=== PATIENT | female | born 1930 | race Caucasian/White ===

== ENCOUNTER 2018-03-22 13:20 | Outpatient (CLI) | payer MEDICARE, OTHER ==
--- NOTE | 2018-03-22 16:17 | RAD ---
LUMBAR SPINE FOUR VIEWS: HISTORY: Spondylolisthesis. COMPARISON: 10/25/2014 FINDINGS: Limited evaluation due to technique. There is poor penetration. On the AP projection, there are at least 5 lumbar type vertebral bodies. A dorsal column stimulator is noted. There is rightward curva ture of the upper lumbar spine and leftward curvature of the lower lumbar spine. In the neutral posi tion, 7.2 mm of anterolisthesis of L5 upon S1. Upon flexion, 5.5 mm of anterolisthesis of L5 upon S1 . Upon extension, 6.4 mm of anterolisthesis of L5 upon S1. In the neutral position, 2.6 mm of anter olisthesis of L4 upon L5. Upon flexion, 3.7 mm of anterolisthesis of L4 upon L5. Upon extension, 5. 3 mm of anterolisthesis of L4 upon L5. Vacuum disk phenomenon at L4-L5 is suggested. There are degenerative changes of the posterior elements with posterior element hypertrophy. IMPRESSION: Spondylolisthesis, as above. POS: C
--- NOTE | 2018-03-22 16:41 | CT ---
CT LUMBAR SPINE NONCONTRAST: 03/22/2018 HISTORY: An 87-year-old female with: M43.16, spondylolisthesis, lumbar region. FINDINGS: For the purposes of this report, the level with hypoplastic bilateral ribs will be designated as T12. Inferior to this, there are five lumbar-type vertebrae. Vertebral body heights are maintained. Th ere is dextroscoliosis with apex of curvature at T12. There is compensatory levoscoliosis with apex of curvature at L4-L5. There are asymmetrically severe degenerative disk changes on the concave side s of the curvature, which is on the left at T11-T12 and at T12-L1, and on the right side at L3-L4 and L4-L5, and then on the left at L5-S1. The findings regarding the neural foramina and the spinal canal are as follows: T11-T12: Mild left neural foraminal stenosis. No right neural foraminal stenosis. No central steno sis. Dorsal column stimulator leads enter the posterior aspect of the spinal canal at this level and then ascend. T12-L1: Generous caliber spinal canal and thecal sac. Minimal disk bulge. Mild to moderate left ne ural foraminal stenosis. Moderate left degenerative facet changes. No right neural foraminal stenos is. L1-L2: Minimal disk bulge. Mild ligamentum flavum thickening. Mild bilateral degenerative facet ch anges. No significant central stenosis. No right neural foraminal stenosis. Mild left neural renu inal stenosis. L2-L3: Mild to moderate ligamentum flavum thickening. Moderate to severe right degenerative facet c hanges. Normal left facet joint. Mild ligamentum flavum thickening. Mild bilateral neural foramina l stenosis. Minimal or mild central stenosis. L3-L4: Asymmetrically severe right-sided degenerative facet disease. Mild left degenerative facet d isease. Mild to moderate ligamentum flavum thickening. Mild disk bulge. Moderate right neural fora ramakrishna stenosis. Mild left neural foraminal stenosis. Mild central spinal canal stenosis. L4-L5: Severe right degenerative facet disease and mild to moderate left degenerative facet disease results in grade 1 anterolisthesis of L4 on L5. Moderate right neural foraminal stenosis with decrea se in craniocaudal dimension of the foramen but increase in the anteroposterior dimensions of the for amen, due to the spondylolisthesis. Deformation of the exiting right L4 nerve root (moderate right n eural foraminal stenosis overall). Mild to moderate left neural foraminal stenosis. Right paracentr al component of the asymmetrically right-sided disk bulge may be impinging on the right L5 nerve root at the lateral recess. Overall moderate central spinal canal stenosis. L5-S1: Severe left degenerative facet changes. Mild to moderate right degenerative facet changes. Generous caliber of spinal canal and thecal sac. Mild to moderate right neural foraminal stenosis. Moderate left neural foraminal stenosis. Mild grade 1 anterolisthesis of L5 on S1. There is a 3.5 cm fusiform aneurysmal dilation of the distal abdominal aorta. This has increased in size from a previous diameter of 3.1 cm on the abdominal CT of 02/21/2014. IMPRESSION: 1. Lumbar spondylosis with multilevel asymmetrical high-grade degenerative disk disease and multilev el asymmetrical high-grade facet osteoarthrosis. The asymmetry of the degenerative disease is due to S-shaped scoliosis. 2. Multilevel neural foraminal stenosis, including moderate. 3. Grade 1 spondylolistheses at L4-L5 and L5-S1 due to facet osteoarthrosis. 4. Moderate central stenosis and lateral recess stenosis at L4-L5. 5. Interval growth of fusiform infrarenal abdominal aortic aneurysm, now 3.5 cm. POS: TPC
== END 2018-03-22 13:21 | disposition home or self-care (01) ==
LOC: RAD 13:20
PROVIDERS: ATTEND Specialist
DX: M43.16 Spondylolisthesis, lumbar region (principal); M47.816 Spondylosis without myelopathy or radiculopathy, lumbar region; M51.36 Other intervertebral disc degeneration, lumbar region; M41.9 Scoliosis, unspecified; M48.061 Spinal stenosis, lumbar region without neurogenic claudication; M43.17 Spondylolisthesis, lumbosacral region; I71.4 Abdominal aortic aneurysm, without rupture
CPT/HCPCS: 72120; 72131

== ENCOUNTER 2018-05-02 20:53 | Inpatient (IN) | payer MEDICARE, OTHER ==
[2018-05-02 21:15] LABS: #Eosinphils 0.2 thou/uL (0.0-0.7); #Lymphocytes 1.9 thou/uL (1.20-3.40); #Monocytes 0.6 thou/uL (0.11-0.59); #Neutrophils 4.8 thou/uL (1.40-6.50); %Basophils 0.1 % (0.0-1.0); %Eosinophils 2.4 % (0.0-10.0); %Lymphocytes 25.9 % (21.0-51.0); %Monocytes 7.7 % (0.0-10.0); %Neutrophils 63.8 % (42.0-75.0); Hemoglobin 12.2 g/dL (12.0-16.0); Mean Corpuscular HGB CONC 31.8 g/dL (32.0-36.0); Mean Corpuscular Hemoglobin 29.4 pg (27.0-31.0); Mean Corpuscular Volume 92.5 fL (78.0-98.0); Mean Platelet Volume 7.7 fL (7.4-10.4); Platelet Count 195 thou/uL (130-400); RBC Distribution Width 12.6 % (11.5-14.5); Red Blood Cell (RBC) Count 4.15 mill/uL (4.20-5.40); White Blood Cell (WBC) Count 7.5 thou/uL (4.8-10.8)
[2018-05-02] MEDS ORDERED: Aspirin 325 MG TAB ONE (21:26)
[2018-05-02 21:28] LABS: INR-International Normal Ratio 1.2; PTT 31.5 SEC (22.9-36.1); Prothrombin Time 15.3 SEC (12.0-14.7)
[2018-05-02 21:34] LABS: ALT (SGPT) 8 U/L (8-55); AST (SGOT) 8 U/L (5-34); Albumin 3.6 g/dL (3.4-4.8); Alkaline Phosphatase 94 U/L (40-150); Anion Gap 9 mmol/L (10-20); BUN (Urea Nitrogen) 21 mg/dL (9.8-20.1); Bilirubin, Total 0.3 mg/dL (0.2-1.2); CK (CPK) 47 U/L (29-168); Calc. Creatinine Clearance 0 mL/min (70-130); Carbon Dioxide 28 mmol/L (23-31); Chloride 105 mmol/L (98-107); Estimated GFR-MDRD 46; Globulin 2.6 g/dL (2.4-3.5); Glucose 86 mg/dL (83-110); Lipase 35 U/L (8-78); Potassium 4.3 mmol/L (3.5-5.1); Protein, Total 6.2 g/dL (6.0-8.3); Sodium 138 mmol/L (136-145)
--- NOTE | 2018-05-02 22:43 | RAD ---
PORTABLE CHEST: History: Syncope. FINDINGS: Heart size within normal limits. There are atherosclerotic changes of the aorta. Lungs show chronic c hange. Dorsal column stimulator is present. IMPRESSION: Chronic lung change. POS: DONG
[2018-05-02] MEDS ORDERED: oxyCODONE/Acetaminophen 5 mg/325 mg Tablet PO SCH (23:45)
[2018-05-03 01:06] VITALS: BMI 37.4
[2018-05-03] MEDS ORDERED: Ondansetron ODT 4 MG TAB SL PRN (05:27)
[2018-05-03] MEDS ORDERED: Ondansetron PF 4 MG/2 ML Vial IVP PRN (05:27)
[2018-05-03] MEDS ORDERED: oxyCODONE/Acetaminophen 5 mg/325 mg Tablet PO SCH (06:30)
[2018-05-03] MEDS ORDERED: Non-Formulary Item 1 EACH (Esomeprazole Magnesium [Nexium] 40 MG) PO SCH (09:00)
[2018-05-03] MEDS ORDERED: Aspirin 325 MG TAB PO SCH (09:00)
[2018-05-03] MEDS: FLUoxetine HCl 20 MG CAP PO SCH ×2 (09:09→21:29)
[2018-05-03] MEDS: Apixaban 5 MG TAB PO SCH ×2 (09:09→21:29)
--- NOTE | 2018-05-03 10:23 | HP ---
CHIEF COMPLAINT: Right hand weakness. HISTORY OF PRESENT ILLNESS: This patient is an 87-year-old female with history of extensive tobacco abuse and a relatively recent diagnosis of atrial fibrillation. The patient reports that she went to grocery store yesterday and was having a difficult time opening the car door because her right hand was not cooperating. She subsequently got to the grocery store and when she was trying to function there, her right hand was not working and felt like it was significantly heavy. She states that when she knew that she had a problem, she denied any lower extremity symptoms, facial droop, speech or swallowing difficulties. She did report a little bit of pain in the left frontal and alevism area, which was mild. She denied any fevers or chills or any other indications of feeling ill at all. The patient presented to the Emergency Department in [place], where CT scan of the head was notable for probable nonocclusive calcified embolus within the left MCA circulation. The patient was subsequently transferred to this facility. She reports that her hand is improving, although it is not back to normal functioning at this time. REVIEW OF SYSTEMS: The patient has some persistent lower extremity edema, in which she has chronic pain in her feet and legs. Otherwise, all systems were reviewed and all pertinent positives and negatives noted in the history of present illness. PAST MEDICAL HISTORY: Notable for atrial fibrillation, which she reports was only diagnosed a few months ago. She has sacroiliitis and degenerative spine disease, COPD for which she does not require medications, although she does have an inhaler. She states she rarely uses it. She has macular degeneration, urinary incontinence, irritable bowel syndrome, significant reflux, and chronic pain. PAST SURGICAL HISTORY: Multiple knee surgeries culminating in her total right knee arthroplasty, cataract-ectomy, hysterectomy, thyroidectomy, cervical laminectomy, other lumbar surgeries, and she also reports that at one point she had "twisted intestines" requiring surgical intervention. FAMILY HISTORY: Father at 36. She is not aware of any significant issues related to him. Her mother lived well into her 80s. She has brothers, who have heart disease and alcoholism. SOCIAL HISTORY: The patient smoked 2 packs a day for 70 years and 5 years ago converted over to an E-cigarette. She denies alcohol or drugs. She is a . She is full code and her daughter in-law, Anny Baker, would be her surrogate decision maker. ALLERGIES: MORPHINE. THE PATIENT ALSO REPORTS THAT ASPIRIN CAUSES HER SIGNIFICANT GI DISTRESS. HOME MEDICATIONS: 1. Percocet p.r.n. 2. Fluoxetine 40 mg b.i.d. 3. ICAPS AREDS Softgel one p.o. daily. 4. Metoprolol 12.5 mg p.o. daily. 5. Eliquis 5 mg b.i.d. 6. Nexium 40 mg b.i.d. PHYSICAL EXAMINATION: VITAL SIGNS: Temperature 97.7, pulse 60, respirations 16, O2 sat 93% on room air, and blood pressure is 121/62. GENERAL APPEARANCE: Age-appropriate female. She is in no distress. Awake, alert, oriented, pleasant, cooperative. HEENT: PERRL. No OP lesions. Dentures are in place and the upper denture palate is stained basically black. NECK: Supple and symmetric without significant bruits noted. No JVD. HEART: Regular without murmurs. LUNGS: Diminished with some scattered rales throughout, but fair air exchange. ABDOMEN: Soft, nontender, and nondistended. Positive bowel sounds. No masses. No organomegaly. EXTREMITIES: Have 2+ pitting edema up to the level of the knee. There are some varicose veins present superficially. NEUROLOGICAL: Cranial nerves appear to be generally intact. She does have very subtle weakness in the counseling aide of the right hand. In the right upper extremity in general has 4/5 strength. She appears to have 5/5 strength in the lower extremity in generally normal sensation throughout. The patient appears to have normal speech and cognition. PSYCH: The patient's affect and behavior are normal. LABORATORY DATA: From this facility, white count 7.5, hemoglobin 12.2, and platelets 195. PT 15.3, INR 1.2. Sodium 138, potassium 4.3, chloride 105, CO2 is 28, BUN 21, creatinine is 1.13, glucose 86, calcium 9.0, AST is 8, ALT is 8. Ammonia is 23. Troponin 0.03. BNP 228. Albumin 3.6. TSH 3.6. Prolactin 16.1. IMAGING DATA: Chest x-ray shows chronic lung changes. IMPRESSION AND PLAN: 1. Apparent acute cerebrovascular accident with right upper extremity weakness. The patient has evidence of calcified embolus in the left middle cerebral artery distribution, which would most likely be the culprit lesion. Her CT angio from [place] also revealed atherosclerotic plaque producing approximately 50% narrowing in the proximal aspect of the right internal carotid artery, which extends into the medial aspect of the cavernous segment of the right internal carotid artery. The right middle cerebral artery showed no abnormalities, though left common carotid showed no high-grade stenosis or occlusion. Proximal aspect of the left internal carotid artery demonstrated both calcified and noncalcified atherosclerotic plaque most suspicious for short-segment high-grade stenosis. The remainder of the left internal carotid artery showed no evidence of high-grade stenosis or occlusion and the calcification in the middle cerebral artery is suspicious for a calcified embolus was also present. We will get an MRI of the brain today. Consult Neurology. Consult Stroke Team. Get carotid Dopplers. The patient will not be started on aspirin because of her GI distress related to use of that. We did discuss Plavix. However, the patient is already on Eliquis and there was some concern about having the double anticoagulation coverage. We will therefore wait for Neurology assessment. The patient did receive initial dose of aspirin at [place], which so far she has tolerated well. We will check a fasting lipid panel in the morning and consult the full Stroke Team. 2. Possible carotid stenosis. We will follow up with the carotid Doppler and check velocities. May need CV Surgery input. 3. Recent diagnosis of atrial fibrillation. The patient is on metoprolol and Eliquis, which we will continue. It is questionable right now it is whether she is actually on Multaq that was on her list from [facility], but was not confirmed. The patient is trying to get some clarification on that as she does not know herself right at the moment. 4. Chronic pain syndrome. We will keep her on some [place] while she is here. 5. Significant peripheral edema. The patient also has a slightly elevated BNP. We will check an echocardiogram both to evaluate the stroke and the patient's edema. 6. The patient is on deep venous thrombosis treatment with therapeutic levels of Eliquis and we will keep on a PPI. Job ID: [id number]
--- NOTE | 2018-05-03 14:24 | ULT ---
BILATERAL CAROTID DUPLEX ULTRASOUND INCLUDING COLOR AND SPECTRAL DOPPLER IMAGING: HISTORY: Right-sided weakness and tingling. FINDINGS: There is some visual plaque in the distal CCAs and proximal ICAs bilaterally. PSV right ICA 73 cm per second, EDV 21 cm per second, and ICA/CCA ratio 1.0. PSV left ICA 171 cm per second, EDV 24 cm per second, and ICA/CCA ratio 2.1. Vertebral flow is antegrade. IMPRESSION: 1. Moderate stenosis, in the 50% to 69% stenosis range, of the left internal carotid artery. 2. Bilateral visual plaque, evidence for carotid artery vascular disease. POS: ELLIE
[2018-05-03] MEDS: oxyCODONE/Acetaminophen 5 mg/325 mg Tablet PO PRN ×2 (15:57→21:30)
--- NOTE | 2018-05-03 19:21 | CON ---
DATE OF CONSULTATION: 05/03/2018 CHIEF COMPLAINT: TIA. HISTORY OF PRESENT ILLNESS: The patient reports she was going to [employer]. She could not open the car door and she felt that the arm was not working well and she went to get a cart and she noticed her right arm was very heavy and she knew something was wrong and she called 911. She has preexisting macular degeneration. There is no history of weakness in her right leg or face. She reports that even this morning when we saw her, she still had some heaviness on the arm. She is generally independent but lives alone. Has two caregivers who look after her. PAST MEDICAL HISTORY: The patient has atrial fibrillation and is on Eliquis. She has history of sacroiliitis, degenerative joint disease, COPD, macular degeneration, bladder incontinence, irritable bowel syndrome, gastroesophageal reflux disease, and chronic pain. PAST SURGICAL HISTORY: Multiple knee surgeries with right total knee arthroplasty, cataract surgery, hysterectomy, thyroidectomy, cervical laminectomy, lumbar surgery, spine surgery, and intestinal obstruction repair. FAMILY HISTORY: She has four brothers, all of them have heart disease. One brother had a stroke. Father at 36 from a pneumonia. Her mother at 84. She had stomach cancer. SOCIAL HISTORY: She smoked two packs a day for 70 years and she quit and started smoking e-cigarette five years ago. She does not drink alcohol. She is a , lives alone, and she has caregivers. ALLERGIES: SHE IS ALLERGIC TO MORPHINE AND ASPIRIN. CURRENT MEDICATIONS: At home, she takes; 1. Percocet. 2. Fluoxetine. 3. ICaps AREDS Softgels. 4. Metoprolol. 5. Eliquis 5 mg b.i.d. 6. Nexium 40 mg b.i.d. REVIEW OF SYSTEMS: PULMONARY: Negative for shortness of breath or cough. GI: Negative for any GI bleeding or vomiting or nausea or diarrhea. NEUROLOGICAL: Positive for right arm heaviness. PSYCHIATRIC: Positive for some anxiety and depression. DERMATOLOGIC: Negative for skin rash. HEMATOLOGIC: Negative for bleeding or diatheses. RHEUMATOLOGIC: Positive for osteoarthritis and right knee replacement. LABORATORY DATA: White count 7.5, hemoglobin 12.2, hematocrit 38.4, platelets are 195. Chemistry; sodium 138, potassium 4.3, chloride 105, bicarbonate 28, BUN 21, and creatinine 1.13. BNP 228.5, and INR 1.2, PTT 15.3, APTT 31.5. Her CT angio and CT were not available to me for review. She completed a carotid Doppler study, pending report. She is also pending MRI brain at this time. PHYSICAL EXAMINATION: VITAL SIGNS: Blood pressure was 121/62, temperature 97.7, pulse 60, and respiratory rate 16. GENERAL APPEARANCE: Well-built, well-nourished lady, who is comfortable in her bed. CHEST: Clear vesicular breathing. CARDIOVASCULAR: S1 and S2 heard. No murmurs. ABDOMEN: Soft. NEUROLOGICAL: Higher intellectual functions normal. Normal orientation to time, place, and person. Cranial nerves 2 through 12 normal. Normal extraocular movements. No facial asymmetry noted. Tongue midline. No atrophy noted. Normal hearing bilaterally. Normal elevation of palate. Motor, bulk normal, tone normal. Strength 5/5 throughout in upper and lower extremities. Muscle groups tested are iliopsoas, hamstrings, quadriceps, ankle dorsiflexion, plantar flexion, deltoid, biceps, triceps, wrist extension and flexion, and finger extension and flexion. Deep tendon reflexes were absent throughout. She had normal sensation to touch and normal cerebellar exam. Normal [id number] and [id number]. IMPRESSION: The patient is an 87-year-old lady, who is on Eliquis for atrial fibrillation. She has never had a prior stroke. At this time, she noticed she has heaviness of the right arm, which has lasted overnight and her examination is normal. She has baseline macular degeneration and visual blurring. At this time, her diagnosis is most consistent with a TIA. Risk factors include atrial fibrillation. RECOMMENDATIONS: Please complete MRI of the brain and echocardiogram and I will review that. Please consider Cardiology consult to see if any other agent other than Eliquis is an option at this time since she is allergic to aspirin. I will follow up with you tomorrow. Job ID: [id number]
[2018-05-03] MEDS: Atorvastatin Calcium 40 MG TAB PO SCH (21:31)
[2018-05-04] MEDS: oxyCODONE/Acetaminophen 5 mg/325 mg Tablet PO PRN ×3 (03:21→18:11)
[2018-05-04 05:46] LABS: Anion Gap 11 mmol/L (10-20); BUN (Urea Nitrogen) 19 mg/dL (9.8-20.1); Calc. Creatinine Clearance 72 mL/min (70-130); Calcium 8.7 mg/dL (7.8-10.44); Carbon Dioxide 27 mmol/L (23-31); Cardiac Risk 2.9 (Less than 4.5); Chloride 106 mmol/L (98-107); Cholesterol 148 mg/dl (< 200 Desired); Estimated GFR-MDRD 53; Glucose 103 mg/dL (83-110); HDL Cholesterol 51 mg/dL (>60 Neg Risk); LDL Cholesterol, Calculated 82 mg/dL; Sodium 140 mmol/L (136-145); Triglycerides 74 mg/dL (Less than 150)
[2018-05-04] MEDS: Aspirin Chewable 81 MG TAB PO SCH (08:24)
[2018-05-04] MEDS: FLUoxetine HCl 20 MG CAP PO SCH ×2 (08:25→20:19)
[2018-05-04] MEDS: Apixaban 5 MG TAB PO SCH (08:25)
--- NOTE | 2018-05-04 11:54 | CT ---
CT BRAIN: HISTORY: Follow up TIAs. CVA. COMPARISON: None available. TECHNIQUE: Noncontrast enhanced CT images of the brain are obtained from the base of the skull through the verte x. Brain and bone windows obtained. FINDINGS: Noncontrast enhanced CT images of the brain demonstrate a small area of old infarction or focal hernandez matter atrophy in the left posterior parietal region. This appears to be old. Some subtle areas of hypodensity are also seen in the left posterior limb of the internal capsule. T hese may represent old areas of white matter ischemic change or old areas of gliosis. No evidence of acute intracranial masses, hemorrhages, or strokes is seen. If there is concern for acute stroke, correlation with noncontrast enhanced MR images of the brain wi th diffusion weighted sequences may be of use. Orbital banding is seen in the left orbit. IMPRESSION: No evidence of acute intracranial abnormalities seen. Correlation with MRI brain without contrast ma y be of use to evaluate for possible strokes. No areas of hemorrhage or large vascular distribution areas of stroke seen on this CT. POS: ELLIE
--- NOTE | 2018-05-04 13:49 | PRG ---
DATE OF SERVICE: 05/04/2018 CHIEF COMPLAINT: Right hand weakness. INTERVAL HISTORY: The patient reports her right hand is feeling better. Today, I clarified with her about her status on aspirin. She reports that she was taking full-dose aspirin in the past and it burned her stomach, and she is okay with taking small dose of aspirin. The patient is unable to get MRI as of now because of her spinal stimulator and this is being evaluated. LABORATORY WORKUP: No new labs are available since yesterday and so today, sodium level 140, potassium 4, chloride 106, bicarb 27, BUN 19, and creatinine 0.99. Triglyceride and cholesterol panel are within normal limits, and her repeat CT of the head was done today and it showed no evidence of acute intracranial abnormalities. An MRI was recommended. We are still waiting for the MRI. PHYSICAL EXAMINATION: VITAL SIGNS: Blood pressure was 125/63, pulse is 54, and temperature 97.4. GENERAL APPEARANCE: Well-built, well-nourished lady. NEUROLOGIC: Higher intellectual functions. Normal orientation to time, place, and person. Appropriate conversation. Cranial nerves 2-12, no facial asymmetry. Normal extraocular movements. Tongue midline. Motor exam: Bulk normal. Tone normal. Strength is 5/5 in both upper and lower extremities. IMPRESSION: The patient with a transient ischemic attack involving the right hand, which got heavy and she could not use her right hand. CT did not show any specific vaso-occlusive disease. We are waiting for her MRI scan. Her carotid Doppler did show moderate stenosis of 50% to 69% in the left ICA. Echocardiogram was reviewed by me and it showed mild mitral regurgitation, mild tricuspid and pulmonary regurgitation, mild enlargement in the right atrium size, and ejection fraction 60% to 65%. Her examination today was normal. She is agreeable to trying a small dose aspirin 81 mg once daily. Please discuss this further with Cardiology and see if it is appropriate for her to be on Eliquis with aspirin. The patient has a director of recruitment and admissions as outpatient. She has a pending appointment with Dr. Khalil. I advised the patient to proceed with plans to see Dr. Khalil as outpatient and discuss these issues. Please call Neurology if you have any further questions. Job ID: [id number]
--- NOTE | 2018-05-04 14:21 | CON ---
DATE OF CONSULTATION: HISTORY OF PRESENT ILLNESS: This is an 87-year-old female, , lives with a full-time caregiver, who experienced an episode of right hand clumsiness on 05/02/2018. Symptoms slowly resolved over the 24 hours. She was seen in the [place] [facility], where CT scan of the brain was negative and a CTA of the neck showed a greater than 70% left internal carotid artery stenosis with soft and hard plaque, 50% right carotid stenosis. PAST MEDICAL HISTORY: Significant for atrial fibrillation relatively recent onset, followed by Dr. Corona in [place] and initially was on Multaq and Eliquis, and then switched to metoprolol and Eliquis after having some short runs of SVT. She has a history of COPD, having smoked 1 to 2 packs of cigarettes a day until five years ago and she currently smokes E-cigarettes. She does experience wheezing at home related to this. She has a history of chronic peripheral neuropathy, which is quite bothersome to her. She also has history of chronic back pain, having undergone multiple lumbar and cervical spine surgeries. She has some chronic venous insufficiency with edema of the lower legs. PAST SURGICAL HISTORY: Includes right knee replacement, thyroid surgery, cataract, hysterectomy, cervical and lumbar surgery. SOCIAL HISTORY: As noted above. MEDICATIONS: At home include; 1. Nexium 40 b.i.d. 2. Eliquis 5 b.i.d. 3. Metoprolol succinate 12.5 a day. 4. Vitamin supplements. 5. Fluoxetine 40 b.i.d. 6. Oxycodone as needed. 7. Carafate 1 a.c. at bedtime. ALLERGIES: SHE REPORTS TO MORPHINE. ASPIRIN UPSETS HER STOMACH. PHYSICAL EXAMINATION: GENERAL: Alert, cooperative lady, looking her stated age. Height 5 feet 8 inches, weight 243. NECK: No carotid bruits. Some restriction in mobility. LUNGS: Bilateral expiratory wheezes. CARDIAC: Regular rate and rhythm. No murmurs. ABDOMEN: Obese and nontender. EXTREMITIES: She has mild peripheral edema. She has a palpable left popliteal and left dorsalis pedis pulse and unable to feel a right popliteal or pedal pulse. Discussed options, recommending surgical intervention for her left carotid stenosis that is greater than 70% symptomatic. She is now about 48 hours out from her symptom and we will plan on surgical intervention tomorrow, holding her Eliquis tonight and in the morning. Job ID: [id number] MTDD
--- NOTE | 2018-05-04 15:12 | PRG ---
DATE OF SERVICE: 05/04/2018 SUBJECTIVE: The patient reports that she continues to do better. Overall, her hand is working better. She has no other new complaints. OBJECTIVE: VITAL SIGNS: Temperature 97.4, pulse 58, respirations 20, O2 saturation 92% to 96% on room air, and BP 141/71. GENERAL APPEARANCE: Age-appropriate female, in no distress. Awake, alert, oriented, pleasant, and cooperative. NEUROLOGIC: The patient actually appears to have good strength in use of her right hand, although she is still lacking some fine motor skills and was having a difficult time manipulating some tissue. LABORATORY DATA: Sodium 140, potassium 4.0, chloride 106, CO2 is 27, BUN 19, creatinine 0.99, glucose 103, triglycerides 74, cholesterol 148, LDL 82, and HDL 51. IMPRESSION AND PLAN: 1. Cerebrovascular accident with right upper extremity weakness and clumsiness, which is improving but still not back to fully resolve. The patient cannot have an MRI because she has a spinal cord stimulator. However, repeat CT scan did not reveal any substantial CVA. Her initial outside CT did show evidence of an embolic plaque in the MCA distribution which is likely the culprit lesion. She has had significant improvement. Continue her on Eliquis and aspirin for now. 2. Left carotid stenosis. Consulted Dr. Gonzalez. He is holding her Eliquis and anticipating doing endarterectomy tomorrow. 3. Chronic pain syndrome. Continue with her [place]. 4. Mildly decompensated chronic diastolic heart failure, stable. 5. Atrial fibrillation. Continue beta-blockers and long-term Eliquis being held now for surgery. Job ID: [id number]
--- NOTE | 2018-05-04 17:24 | PRG ---
DATE OF SERVICE: 05/04/2018 SUBJECTIVE: The patient is a very pleasant 87-year-old female with past medical history significant for paroxysmal atrial fibrillation anticoagulated with Eliquis, who presented to the ER with complaints of right hand weakness and tingling yesterday. She has been admitted with TIA. Her symptoms are largely resolved. She continues to complain of some mild paresthesia in her right hand. MRI was not performed secondary to lumbar spinal stimulator. She has no complaints of chest pain or shortness of breath. She has no nausea or vomiting. She has worked with PT this morning without any issue. OBJECTIVE: VITAL SIGNS: Temperature 97.4, pulse 58, O2 saturation 96% on room air, and blood pressure 141/71. GENERAL: This is a well-appearing, mildly obese, female, in no acute distress. NECK: Supple, trachea is midline. No lymphadenopathy. No audible carotid bruit. CV: S1 and S2, regular rate and rhythm, no appreciable murmurs, rubs, or gallops, mildly bradycardic. ABDOMEN: Positive bowel sounds. Soft and nontender. LUNGS: Regular respiratory rate and pattern, overall clear to auscultation bilaterally. EXTREMITIES: No appreciable edema. NEUROLOGIC: Cranial nerves 2 through 12 are grossly intact. +5 strength bilaterally in lower extremities. +5 strength bilateral in upper extremities, however, on the right, she does have some residual issues with coordination. LABORATORY DATA: White blood cell count 4.15, hemoglobin 12.2, and MCH 29.4. PT and INR are 15.3 and 1.2. Sodium 140, potassium 4.0, creatinine 0.99. Triglycerides 74, cholesterol 148, LDL 82, HDL 51. TSH is 3.6525. ASSESSMENT: 1. Transient ischemic attack, repeat CT scan today shows no evidence of acute stroke, however, CTA from outside facility does show a nonocclusive calcified embolus in the left MCA. 2. Short segment high-grade stenosis of the proximal left internal carotid artery. 3. Paroxysmal atrial fibrillation, currently in sinus rhythm. CHADS-VASc is 6. 4. Chronic diastolic heart failure. 5. Chronic low back pain with radiculopathy, status post nerve stimulator, followed by Dr. Patel. PLAN: Given the patient's high-grade left internal carotid artery stenosis and TIA, we will consult Dr. Gonzalez for possible left carotid endarterectomy in this hospitalization. The case was discussed with him. We will continue aspirin and statin for now. Further recommendations based on hospital course. Job ID: [id number]
[2018-05-04] MEDS: Atorvastatin Calcium 40 MG TAB PO SCH (20:20)
[2018-05-04] MEDS: Gabapentin 300 MG CAP PO SCH (20:20)
[2018-05-04] MEDS: ALPRAZolam 0.25 MG TAB PO PRN (23:13)
[2018-05-05] MEDS: oxyCODONE/Acetaminophen 5 mg/325 mg Tablet PO PRN ×2 (02:51→08:32)
[2018-05-05] MEDS: Aspirin Chewable 81 MG TAB PO SCH (08:32)
[2018-05-05] MEDS: FLUoxetine HCl 20 MG CAP PO SCH ×2 (08:32→20:20)
[2018-05-05] MEDS: Sodium Chloride 0.45% 1,000 ML IV SCH (08:33)
--- NOTE | 2018-05-05 09:51 | PDOC.PN ---
- Subjective Encounter Start Date: 05/05/18 Encounter Start Time: 07:20 Patient seen and examined. No new complaints. No overnight events - Objective MAR Reviewed: Yes Vital Signs & Weight: Vital Signs (12 hours) Temp Pulse Resp BP Pulse Ox 05/05/18 08:22 95 05/05/18 08:00 97.7 F 60 18 123/83 95 05/05/18 04:00 97.6 F 59 L 20 121/51 L 97 05/05/18 00:00 98.1 F 60 20 109/56 L 94 L Weight Weight 243 lb 2.718 oz I&O: 05/04/18 05/05/18 05/06/18 06:59 06:59 06:59 Intake Total 1288 250 Balance 1288 250 Result Diagrams: 05/02/18 21:00 05/04/18 04:35 Radiology Reviewed by me: Yes EKG Reviewed by me: Yes Phys Exam - Physical Examination Constitutional: NAD HEENT: PERRLA, moist MMs, sclera anicteric Neck: no JVD, supple Respiratory: no wheezing, no rales, no rhonchi Cardiovascular: RRR, no significant murmur, no rub Gastrointestinal: soft, non-tender, no distention, positive bowel sounds Musculoskeletal: no edema, pulses present Neurological: moves all 4 limbs Lymphatic: no nodes Psychiatric: normal affect, A&O x 3 Skin: no rash, normal turgor Dx/Plan (1) Left carotid stenosis Code(s): I65.22 - OCCLUSION AND STENOSIS OF LEFT CAROTID ARTERY Status: Acute (2) TIA (transient ischemic attack) Code(s): G45.9 - TRANSIENT CEREBRAL ISCHEMIC ATTACK, UNSPECIFIED Status: Acute (3) Anxiety and depression Code(s): F41.9 - ANXIETY DISORDER, UNSPECIFIED; F32.9 - MAJOR DEPRESSIVE DISORDER, SINGLE EPISODE, UNSPECIFIED Status: Chronic (4) Chronic anticoagulation Code(s): Z79.01 - INFORMATION MANAGER (CURRENT) USE OF ANTICOAGULANTS Status: Chronic (5) Chronic low back pain Code(s): M54.5 - LOW BACK PAIN; G89.29 - OTHER CHRONIC PAIN Status: Chronic (6) Chronic stage c diastolic heart failure Code(s): I50.32 - CHRONIC DIASTOLIC (CONGESTIVE) HEART FAILURE Status: Chronic (7) Dyslipidemia Code(s): E78.5 - HYPERLIPIDEMIA, UNSPECIFIED Status: Chronic (8) GERD (gastroesophageal reflux disease) Code(s): K21.9 - GASTRO-ESOPHAGEAL REFLUX DISEASE WITHOUT ESOPHAGITIS Status: Chronic (9) Hypertension Code(s): I10 - ESSENTIAL (PRIMARY) HYPERTENSION Status: Chronic (10) Obesity (BMI 30-39.9) Code(s): E66.9 - OBESITY, UNSPECIFIED Status: Chronic (11) PAF (paroxysmal atrial fibrillation) Code(s): I48.0 - PAROXYSMAL ATRIAL FIBRILLATION Status: Chronic - Plan cont current plan of care, plan discussed w/ family, PT/OT * today plan for * will monitor after surgery * if stable discharge in 24-48 hours * medication reviewed as below * symptomatic treatment. * discussed with family bedside Review of Systems - Review of Systems ENT: negative: Ear Pain, Ear Discharge, Nose Pain, Nose Discharge, Nose Congestion, Mouth Pain, Mouth Swelling, Throat Pain, Throat Swelling, Other Respiratory: negative: Cough, Dry, Shortness of Breath, Hemoptysis, SOB with Excertion, Pleuritic Pain, Sputum, Wheezing Cardiovascular: negative: chest pain, palpitations, orthopnea, paroxysmal nocturnal dyspnea, edema, light headedness, other Gastrointestinal: negative: Nausea, Vomiting, Abdominal Pain, Diarrhea, Constipation, Melena, Hematochezia, Other Genitourinary: negative: Dysuria, Frequency, Incontinence, Hematuria, Retention , Other Musculoskeletal: negative: Neck Pain, Shoulder Pain, Arm Pain, Back Pain, Hand Pain, Leg Pain, Foot Pain, Other - Medications/Allergies Allergies/Adverse Reactions: Allergies Allergy/AdvReac Type Severity Reaction Status Date / Time morphine Allergy Verified 05/03/18 15:18 Medications: Current Medications Alprazolam (Xanax) 0.25 mg PO TIDPRN PRN PRN Reason: Anxiety Last Admin: 05/04/18 23:13 Dose: 0.25 mg Aspirin (Aspirin Chewable) 81 mg PO DAILY [facility] Last Admin: 05/05/18 08:32 Dose: 81 mg Atorvastatin Calcium (Lipitor) 40 mg PO [facility] Last Admin: 05/04/18 20:20 Dose: 40 mg Fluoxetine HCl (Prozac) 40 mg PO BID [facility] Last Admin: 05/05/18 08:32 Dose: 40 mg Gabapentin (Neurontin) 300 mg PO [facility] Last Admin: 05/04/18 20:20 Dose: 300 mg Sodium Chloride (1/2 Normal Saline) 1,000 mls @ 50 mls/hr IV .Q20H [facility] Last Admin: 05/05/18 08:33 Dose: 1,000 mls Metoprolol Succinate (Toprol Xl) 12.5 mg PO DAILY [facility] Last Admin: 05/05/18 08:31 Dose: 12.5 mg Oxycodone/Acetaminophen (Percocet 5/325) 2 tab PO Q6H PRN PRN Reason: Pain Last Admin: 05/05/18 08:32 Dose: 2 tab Pantoprazole Sodium (Protonix) 40 mg PO DAILY [facility] Last Admin: 05/05/18 08:32 Dose: 40 mg
[2018-05-05 12:02] VITALS: BP 121/65
[2018-05-05] MEDS ORDERED: Fentanyl 100 MCG/2 ML VIAL ONE ×3 (12:19→15:57)
[2018-05-05] MEDS ORDERED: Midazolam HCl 2 mg/2 ml Vial ONE (12:19)
[2018-05-05] MEDS ORDERED: Nitroglycerin 50 MG/250 ML BOT 250 ML ONE (12:20)
[2018-05-05] MEDS ORDERED: Heparin 5,000 UNITS/ML VIAL ONE ×2 (12:28→13:07)
[2018-05-05] MEDS ORDERED: Dexamethasone 20 MG/5 ML VIAL ONE (12:28)
[2018-05-05] MEDS ORDERED: Glycopyrrolate 0.2 MG/ML 5 ML SYRINGE ONE (12:28)
[2018-05-05] MEDS ORDERED: Lidocaine 1% PF 5 ML VIAL ONE (12:28)
[2018-05-05] MEDS ORDERED: PROPOFOL 200 MG/20 ML VIAL ONE (12:28)
[2018-05-05] MEDS ORDERED: Nitroglycerin 50 MG/250 ML BOT ONE (12:28)
[2018-05-05] MEDS ORDERED: Protamine Sulfate 250 MG/25 ML VIAL ONE (12:28)
[2018-05-05] MEDS ORDERED: Rocuronium Bromide 10 MG/ML (10ML VIAL) ONE (12:28)
[2018-05-05] MEDS ORDERED: ePHEDrine 50 MG/ML VIAL ONE (12:28)
[2018-05-05] MEDS ORDERED: PHENYLEPHRINE-NS 100 MCG/ML 10 ML SYRINGE ONE ×2 (12:28→14:18)
[2018-05-05] MEDS ORDERED: Heparin 10,000 UNITS/ 10 ML VIAL ONE (12:28)
[2018-05-05] MEDS ORDERED: Ondansetron PF 4 MG/2 ML Vial ONE (12:28)
[2018-05-05] MEDS ORDERED: Protamine Sulfate 50 MG/5 ML VIAL ONE (13:07)
[2018-05-05] MEDS ORDERED: Bupivacaine/Epinephrine 0.25% 30 ML VIAL ONE (13:07)
[2018-05-05] MEDS ORDERED: Phenylephrine HCL 10 MG/ML VIAL ONE (14:19)
[2018-05-05] MEDS ORDERED: Ketorolac Tromethamine 30 MG/ML VIAL ONE (16:16)
[2018-05-05] MEDS ORDERED: Ondansetron HCl/PF 4 MG/2 ML Vial IVP PRN (16:28)
[2018-05-05] MEDS ORDERED: Ketorolac Tromethamine 30 MG/ML VIAL IVP SCH (16:30)
[2018-05-05] MEDS ORDERED: HYDROcodone/Acetaminophen 5/325 mg Tablet PO PRN ×2 (16:53)
[2018-05-05] MEDS ORDERED: Acetaminophen 325 MG TAB PO PRN (16:53)
[2018-05-05] MEDS ORDERED: Nitroglycerin 50 MG/250 ML BOT 250 ML IVPB PRN (16:53)
[2018-05-05] MEDS ORDERED: hydrALAZINE 20 MG/ML VIAL SLOW IVP PRN (16:53)
[2018-05-05] MEDS ORDERED: Ondansetron PF 4 MG/2 ML Vial IVP PRN (16:53)
[2018-05-05] MEDS ORDERED: Promethazine HCl 25 MG/ML VIAL IM PRN (16:53)
[2018-05-05] MEDS ORDERED: Phenylephrine 10 MG/NS 250 ML 250 ML IVPB PRN (16:53)
[2018-05-05] MEDS: Fentanyl 100 MCG/2 ML VIAL SLOW IVP PRN ×2 (17:13→20:20)
[2018-05-05] MEDS ORDERED: Ketorolac Tromethamine 15 MG/ML VIAL IVP SCH (18:00)
[2018-05-05] MEDS: Atorvastatin Calcium 40 MG TAB PO SCH (20:20)
[2018-05-05] MEDS: ALPRAZolam 0.25 MG TAB PO PRN (20:20)
[2018-05-05] MEDS: Gabapentin 300 MG CAP PO SCH (20:20)
[2018-05-05] MEDS: CEFAZOLIN 2 GM in Premix Bag 1 BAG IVPB SCH (22:33)
[2018-05-06] MEDS: Ketorolac Tromethamine 30 MG/ML VIAL IVP SCH ×3 (00:43→11:44)
[2018-05-06] MEDS: CEFAZOLIN 2 GM in Premix Bag 1 BAG IVPB SCH (05:19)
[2018-05-06] MEDS: Fentanyl 100 MCG/2 ML VIAL SLOW IVP PRN (06:47)
[2018-05-06] MEDS: Sodium Chloride 0.45% 1,000 ML IV SCH (07:47)
[2018-05-06] MEDS: ALPRAZolam 0.25 MG TAB PO PRN (07:47)
--- NOTE | 2018-05-06 07:54 | OP ---
DATE OF PROCEDURE: 05/05/2018 PREOPERATIVE DIAGNOSIS: Symptomatic left carotid stenosis. POSTOPERATIVE DIAGNOSIS: Symptomatic left carotid stenosis secondary to large ulcerated plaque with friable brown material throughout the plaque. DESCRIPTION OF PROCEDURE: After adequate anesthesia had been obtained, the patient was prepped and draped. Ultrasound had been used to locate the carotid bulb prior to prepping and draping. The patient had severe osteoarthritis and neck immobility. Incision was then made, carried through the platysma, rotating sternocleidomastoid muscle. The common carotid artery was isolated with the tape proximally and then distally. The facial vein was ligated, clipped, and divided to allow access to the distal internal carotid artery. After a loop had been placed around this, the external carotid artery was mobilized gently while the patient was heparinized with 7500 units of heparin with an ACT of 232 seconds. Clamps were applied to the internal common and the external were secured with the tape. Arteriotomy was performed and friable material that was freely loose was identified after arteriotomy. This was aspirated thoroughly prior to placing a 12-Pashto shunt. Endarterectomy was then performed with nice tapering distally. The area was thoroughly irrigated on a number of occasions. Following which, a bovine patch was used to secure the arteriotomy with a running 6-0 Prolene suture. Prior to completing suture line, the shunt was removed, vessels backflushed and forward flushed, and the area again irrigated thoroughly with heparin saline. The suture line was secured while flow was restored up the external and then internal carotid artery. Following 25 mg of protamine, hemostasis was obtained with additional sutures as needed. After obtaining good hemostasis, the wound was irrigated and closed in layers. The patient is to be taken to the ICU in guarded condition and after to recovery room. Job ID: [id number]
--- NOTE | 2018-05-06 08:58 | DIS ---
DATE OF ADMISSION: 05/04/2018 DATE OF DISCHARGE: 05/06/2018 HISTORY OF PRESENT ILLNESS: This is an 87-year-old female with several episodes of right hand weakness and clumsiness culminating at a visit to the hospital on 05/02 in [place], where a CT scan of the neck showed a severe left internal carotid artery stenosis with soft plaque and ulceration. She had a recent diagnosis of atrial fibrillation made in [place] and had been begun on Multaq and Eliquis, and then subsequently switched to metoprolol and Eliquis. She remained in sinus rhythm during this admission. She had a history of COPD with heavy cigarette abuse until 5 years ago and now she uses E cigarettes. She has chronic pain in her back as well as pain from neuropathy in her feet with chronic venous insufficiency. She was admitted to the hospital, and on 05/05, underwent left carotid endarterectomy and was found to have a severely ulcerated plaque with lots of soft tissue debris. Postoperatively, she did well with no new neurologic deficits and will be discharged on her admitting medications with the instructions to hold Eliquis for 1 week and to begin coated aspirin 81 mg a day. Discharge and followup instructions were given. Job ID: [id number]
[2018-05-06] MEDS ORDERED: Aspirin Chewable 81 MG TAB PO SCH (09:00)
[2018-05-06] MEDS: FLUoxetine HCl 20 MG CAP PO SCH (10:32)
[2018-05-06] MEDS: Aspirin Chewable 81 MG TAB PO SCH (10:33)
--- NOTE | 2018-05-06 11:17 | DIS ---
DATE OF ADMISSION: 05/04/2018 DATE OF DISCHARGE: 05/06/2018 PRIMARY CARE PHYSICIAN: Dr. Keshav Cedillo. DISCHARGE DISPOSITION: Home. PRIMARY DISCHARGE DIAGNOSES: 1. Transient ischemic attack. 2. Symptomatic left carotid stenosis. 3. Status post left carotid endarterectomy. SECONDARY DISCHARGE DIAGNOSES: Anxiety and depression, chronic anticoagulation, chronic low back pain, chronic diastolic heart failure stage C, dyslipidemia, gastroesophageal reflux disease, hypertension, obesity with body mass index 37, and paroxysmal atrial fibrillation. PRIMARY PROCEDURE/OPERATION: Left carotid endarterectomy. RADIOLOGICAL INVESTIGATIONS: Chest x-ray normal. Carotid Doppler showed left carotid stenosis. Echocardiography showed normal EF and diastolic dysfunction. SIGNIFICANT LABORATORY DATA: WBC 7.5, hemoglobin 12.2, and platelets 195. INR 1.2. BMP normal. LDL 82. Cardiac enzymes negative. TSH 3.65. Prolactin 16.1. DISCHARGE MEDICATIONS: 1. Oxycodone 1 tablet q.6 hourly p.r.n. 2. Nexium 40 mg p.o. b.i.d. 3. Prozac 40 mg p.o. b.i.d. 4. Toprol-XL 12.5 mg p.o. daily. 5. Carafate 1 g p.o. a.c. and at bedtime p.r.n. 6. Ocuvite 1 tablet daily. 7. Aspirin 81 mg p.o. daily. 8. Lipitor 20 mg p.o. at bedtime. CONTRAINDICATIONS: The patient is not on any blood pressure medication because the patient's blood pressure remains normal. CODE STATUS: Full code. INPATIENT WALL CRANE OPERATOR: Dr. Gonzalez was consulted for carotid stenosis. TEST RESULTS PENDING ON DISCHARGE: None. ALLERGIES: MORPHINE. DISCHARGE PLAN: Posthospital, the patient will follow up with Dr. Gonzalez as instructed. The patient will follow up with primary care physician and neurologist as instructed. HOSPITAL COURSE: An 87-year-old female with above-mentioned medical problem, who was admitted by Dr. Cormier. Please see his H and P for further details. The patient was admitted for TIA. She was also found with left carotid stenosis and the symptomatology of TIA was also consistent with left carotid stenosis. In this way, the patient was having symptomatic left carotid stenosis and that is why we consulted Dr. Gonzalez, who did left carotid endarterectomy during this admission. Neurology was also following while in the hospital. The patient had complete stroke workup while in the hospital. The patient is overall doing very well and the patient is planned for discharge after surgery today from ICU. The patient is seen and examined at bedside today. PHYSICAL EXAMINATION: VITAL SIGNS: Currently, blood pressure 105/50, pulse 63, respiratory rate 20, and weight 243 pounds. NECK: Surgical site at the left carotid endarterectomy is clean and healthy. LUNGS: Normal. CARDIAC: Normal. ABDOMEN: Soft and benign. NEUROLOGIC: Nonfocal examination. Overall, the patient is medically stable for discharge today. REVIEW OF SYSTEMS: All review of systems reviewed with her and negative. Job ID: [id number]
[2018-05-06 11:55] VITALS: TEMP 98.1
--- NOTE | 2018-05-07 13:45 | EKG ---
Test Reason : Blood Pressure : / mmHG Vent. Rate : 056 BPM Atrial Rate : 056 BPM P-R Int : 152 ms QRS Dur : 096 ms QT Int : 458 ms P-R-T Axes : 001 007 062 degrees QTc Int : 441 ms Sinus bradycardia Otherwise normal ECG Confirmed by YOGI AUGUSTE, BLAZE ([id number]), book or script editor MAXIM TORRES ([id number]) on 05/07/2018 1:44:51 PM Referred By: Confirmed By:BLAZE CALIX MD
== END 2018-05-06 13:11 | disposition home or self-care (01) | DRG 38 ==
LOC: ERS 20:53 → 2SE 22:26 → OBSVTOIN 05-04 14:31 → CCU 05-05 16:40
PROVIDERS: ADMIT Internal Medicine; ATTEND Internal Medicine
PROC: 03CL0ZZ Extirpation of Matter from Left Internal Carotid Artery, Open Approach (ICD-10-PCS; principal; 2018-05-05)
PROC: 03UL0KZ Supplement Left Internal Carotid Artery with Nonautologous Tissue Substitute, Open Approach (ICD-10-PCS; 2018-05-05)
DX: I65.22 Occlusion and stenosis of left carotid artery (principal); I50.32 Chronic diastolic (congestive) heart failure; J44.9 Chronic obstructive pulmonary disease, unspecified; I11.0 Hypertensive heart disease with heart failure; K21.9 Gastro-esophageal reflux disease without esophagitis; K58.9 Irritable bowel syndrome, unspecified; G89.4 Chronic pain syndrome; I08.1 Rheumatic disorders of both mitral and tricuspid valves; I48.0 Paroxysmal atrial fibrillation; M54.16 Radiculopathy, lumbar region; F41.9 Anxiety disorder, unspecified; F32.9 Major depressive disorder, single episode, unspecified; E78.5 Hyperlipidemia, unspecified; E66.9 Obesity, unspecified; G62.9 Polyneuropathy, unspecified; I87.2 Venous insufficiency (chronic) (peripheral); Z96.651 Presence of right artificial knee joint; Z98.49 Cataract extraction status, unspecified eye; Z90.710 Acquired absence of both cervix and uterus; Z98.890 Other specified postprocedural states; Z87.891 Personal history of nicotine dependence; Z79.01 Long term (current) use of anticoagulants; Z88.8 Allergy status to other drugs, medicaments and biological substances; Z68.30 Body mass index [BMI] 30.0-30.9, adult
CPT/HCPCS: 36415; 70450; 71045; 80048; 80053; 80061; 82140; 82550; 83690; 83880; 84146; 84443; 84484; 85025; 85610; 85730; 93005; 93306; 93880; J1100; J1642; J1644; J1885; J2001; J2250; J2370; J2405; J2704; J2720; J3010; J3490; J7620

== ENCOUNTER 2018-07-30 10:23 | Emergency (ER) | payer MEDICARE, OTHER ==
[2018-07-30 11:08] LABS: Bilirubin Small (Negative); Blood, Urine Negative (Negative); Clarity TURBID (Clear); Glucose, Urine (Dipstick) Negative (Negative); Leukocyte Small (Negative); Nitrite Positive (Negative); Protein, Urine (Dipstick) Negative (Neg-Trace); Specific Gravity, Urine 1.028 (1.002-1.036)
[2018-07-30 11:12] LABS: Hyaline Casts/LPF 4-6 HYALINE CAST LPF (0-3 Hyaline); Pathc Cast-AUWi Flag 0.43 (0-2.49)
[2018-07-30 11:30] LABS: RBC/HPF 0-3 HPF (0-3)
[2018-07-30] MEDS ORDERED: Fluconazole 100 MG TAB PO SCH (11:30)
[2018-07-30 11:31] LABS: Bacteria/HPF 3+ HPF (None Seen); Crystals/HPF 1+ STARCH HPF (Negative); Renal Epithelial None Seen HPF (0-3); Transitional Epithelial NONE SEEN HPF (0-3)
== END 2018-07-30 12:02 | disposition home or self-care (01) ==
LOC: ERS 10:23
DX: B37.3 Candidiasis of vulva and vagina (principal); F41.0 Panic disorder [episodic paroxysmal anxiety]; I48.91 Unspecified atrial fibrillation; K21.9 Gastro-esophageal reflux disease without esophagitis; J44.9 Chronic obstructive pulmonary disease, unspecified; F32.9 Major depressive disorder, single episode, unspecified; F17.290 Nicotine dependence, other tobacco product, uncomplicated; Z79.899 Other long term (current) drug therapy
CPT/HCPCS: 81003; 81015; 87077; 87086; 87186; 99283

== ENCOUNTER 2018-08-02 11:42 | Emergency (ER) | payer MEDICARE, OTHER ==
[2018-08-02 14:15] LABS: #Basophils 0.1 thou/uL (0.0-0.2); #Eosinphils 0.2 thou/uL (0.0-0.7); #Lymphocytes 1.6 thou/uL (1.20-3.40); #Monocytes 0.6 thou/uL (0.11-0.59); %Basophils 0.6 % (0.0-1.0); %Eosinophils 2.7 % (0.0-10.0); %Lymphocytes 18.5 % (21.0-51.0); %Monocytes 6.9 % (0.0-10.0); %Neutrophils 71.4 % (42.0-75.0); Hemoglobin 12.7 g/dL (12.0-16.0); Mean Corpuscular Hemoglobin 29.9 pg (27.0-31.0); Mean Corpuscular Volume 93.6 fL (78.0-98.0); Mean Platelet Volume 7.7 fL (7.4-10.4); Platelet Count 218 thou/uL (130-400); RBC Distribution Width 12.7 % (11.5-14.5); Red Blood Cell (RBC) Count 4.24 mill/uL (4.20-5.40); White Blood Cell (WBC) Count 8.4 thou/uL (4.8-10.8)
[2018-08-02 14:21] LABS: INR-International Normal Ratio 1.2; Prothrombin Time 15.7 SEC (12.0-14.7)
[2018-08-02 14:39] LABS: ALT (SGPT) Less than 7 U/L (8-55); AST (SGOT) 10 U/L (5-34); Albumin 4.1 g/dL (3.4-4.8); Alkaline Phosphatase 101 U/L (40-150); Anion Gap 13 mmol/L (10-20); BUN (Urea Nitrogen) 24 mg/dL (9.8-20.1); Bilirubin, Total 0.4 mg/dL (0.2-1.2); Calc. Creatinine Clearance 0 mL/min (70-130); Calcium 9.3 mg/dL (7.8-10.44); Carbon Dioxide 28 mmol/L (23-31); Chloride 101 mmol/L (98-107); Estimated GFR-MDRD 46; Globulin 2.7 g/dL (2.4-3.5); Glucose 108 mg/dL (83-110); Potassium 5.4 mmol/L (3.5-5.1); Protein, Total 6.8 g/dL (6.0-8.3); Sodium 137 mmol/L (136-145)
[2018-08-02 14:55] LABS: Bilirubin Negative (Negative); Blood, Urine Negative (Negative); Clarity CLOUDY (Clear); Glucose, Urine (Dipstick) Negative (Negative); Leukocyte Negative (Negative); Nitrite Negative (Negative); Protein, Urine (Dipstick) Negative (Neg-Trace); Specific Gravity, Urine 1.018 (1.002-1.036); pH, Urine 7.5 (5.0-9.0)
--- NOTE | 2018-08-02 15:25 | CT ---
CT angiogram head CT angiogram neck: 08/02/2018 COMPARISON: Head CT 05/04/2018 HISTORY: Transient ischemic attack 2 weeks ago. Left arm weakness, left wrist numbness, and left faci al numbness for 2 weeks TECHNIQUE: Axial CT imaging at 5 mm intervals from vertex through skull base without contrast. Then, axial CT imaging obtained at 1.25 mm intervals from vertex through lung apices with IV contrast using CT angiogram protocol. Coronal and sagittal 3-D reformatted imaging obtained. FINDINGS: Noncontrast enhanced imaging demonstrates no intracranial hemorrhage, midline shift, or mas s effect. The imaged paranasal sinuses/mastoid air cells appear well-aerated. There is no displaced calvarial f racture. The imaged lung apices demonstrate bilateral upper lobe emphysematous change. Partially imaged dorsal column stimulator overlies the mid thoracic spine. There is multifocal atherosclerotic calcification of the aortic arch. There is atherosclerotic calcif ication at the origin of bilateral subclavian arteries. There is mild stenosis at the origin of bilateral vertebral arteries. No significant stenosis is seen involving the origin of either common c arotid artery. The retroantral fat and the parapharyngeal fat appears clear bilaterally. The parotid glands and subm andibular glands appear unremarkable as well. The right lobe of the thyroid gland is hypoplastic. Limited assessment of the aerodigestive tract dem onstrates no focal lesion. No lymphadenopathy is noted within the neck. There are postoperative clips in the carotid space on the left. On the basis of NASCET criteria, there is no hemodynamically significant stenosis involving the commo n carotid artery on either side. There is calcified plaque at the origin of the right internal and right external carotid artery. At t he origin of the right internal carotid artery there is a focal area of mild stenosis. The distal aspect of the internal carotid artery on the right is tortuous. No hemodynamically significant stenos is is seen involving the internal carotid artery on either side. The vertebral artery is patent bilaterally. The basilar artery and its branches appear patent with no saccular aneurysm, high-grade stenosis, or vascular occlusion involving the posterior circulation. There is an aneurysm involving the cavernous segment of the right internal carotid artery measuring 1 .3 cm in transverse dimension. There is atherosclerotic calcification involving the cavernous carotid arteries bilaterally. The A1 segment and the distal CLINT branches appear unremarkable. There is a focal area of atherosclerotic calcification involving the distal aspect of the M1 segment on the left, stable when compared to the 05/04/2018 CT examination. This likely causes a degree of distal left M1 stenosis. M2 branches appear patent on the left. The MCA bifurcation on the right appears unremarkable. Distal CLINT branches appear intact bilaterally. Review of the osseous structures demonstrates multilevel cervical spine degenerative change with disc space narrowing and osteophyte formation at C3-4, C4-5, and C5-6. Multilevel bilateral facet and uncovertebral osteophyte formation noted within the cervical spine. Prominent degenerative change not ed at the atlantoaxial interspace. IMPRESSION: No hemodynamically significant stenosis on the basis of NASCET criteria involving the int ernal carotid artery or common carotid artery on either side. Multifocal atherosclerotic disease as detailed above. 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 No intracranial central arterial occlusion.
[2018-08-02] MEDS ORDERED: Lorazepam 0.5 MG TAB PO SCH (16:00)
[2018-08-02] MEDS ORDERED: Lorazepam 1 MG TAB ONE (16:06)
--- NOTE | 2018-08-06 15:08 | EKG ---
Test Reason : ER Blood Pressure : / mmHG Vent. Rate : 067 BPM Atrial Rate : 067 BPM P-R Int : 178 ms QRS Dur : 088 ms QT Int : 418 ms P-R-T Axes : 037 004 066 degrees QTc Int : 441 ms Normal sinus rhythm Normal ECG Confirmed by ELIZABETH CHOW ([id number]), newspaper photo editor MAXIM TORRES ([id number]) on 08/06/2018 3:08:25 PM Referred By: Confirmed By:ELIZABETH CHOW
== END 2018-08-02 17:21 | disposition home or self-care (01) ==
LOC: ERS 11:42
DX: F41.0 Panic disorder [episodic paroxysmal anxiety] (principal); R20.2 Paresthesia of skin; I48.91 Unspecified atrial fibrillation; J44.9 Chronic obstructive pulmonary disease, unspecified; F32.9 Major depressive disorder, single episode, unspecified; F41.9 Anxiety disorder, unspecified; F17.210 Nicotine dependence, cigarettes, uncomplicated; K21.9 Gastro-esophageal reflux disease without esophagitis; I10 Essential (primary) hypertension; Z86.73 Personal history of transient ischemic attack (TIA), and cerebral infarction without residual deficits; Z79.899 Other long term (current) drug therapy
CPT/HCPCS: 36415; 70496; 70498; 80053; 81003; 84484; 85025; 85610; 85730; 93005

== ENCOUNTER 2018-08-08 09:57 | Emergency (ER) | payer MEDICARE, OTHER ==
[2018-08-08 11:16] LABS: Bilirubin Negative (Negative); Blood, Urine Negative (Negative); Clarity CLOUDY (Clear); Glucose, Urine (Dipstick) Negative (Negative); Leukocyte Negative (Negative); Nitrite Negative (Negative); Protein, Urine (Dipstick) Negative (Neg-Trace); Specific Gravity, Urine 1.023 (1.002-1.036); Urobilinogen 0.2 mg/dL (0.2-1.0)
== END 2018-08-08 12:01 | disposition left against medical advice (07) ==
LOC: ERS 09:57
DX: G62.9 Polyneuropathy, unspecified (principal); I48.91 Unspecified atrial fibrillation; Z79.01 Long term (current) use of anticoagulants; K21.9 Gastro-esophageal reflux disease without esophagitis; I10 Essential (primary) hypertension; F41.0 Panic disorder [episodic paroxysmal anxiety]; Z86.73 Personal history of transient ischemic attack (TIA), and cerebral infarction without residual deficits; F32.9 Major depressive disorder, single episode, unspecified; Z79.899 Other long term (current) drug therapy
CPT/HCPCS: 81003; 93005

== ENCOUNTER 2018-11-22 06:33 | Day surgery (SDC) | payer MEDICARE, OTHER ==
[2018-11-21 13:47] VITALS: BMI 36.3
--- NOTE | 2018-11-22 15:33 | OP ---
DATE OF PROCEDURE: 11/22/2018 PROCEDURES PERFORMED: Esophagogastroduodenoscopy with biopsy and colonoscopy with polypectomy. PREPROCEDURE DIAGNOSES: 1. Chronic abdominal pain. 2. Recent ER visit in [place] with normal UA, CMP, CBC, CAT scan of the abdomen and pelvis without contrast showing small hiatal hernia and diverticulosis. POSTPROCEDURE DIAGNOSES: 1. Mild gastric erythema in the stomach, biopsied. 2. Hiatal hernia, sliding type nonincarcerated. 3. Colonoscopy notable for diverticulosis coli, one transverse colon polyp 7 mm, removed by hot snare polypectomy. 4. She does have a midline abdominal hernia, which the colon does want to protrude through complete the exam. RECOMMENDATIONS: 1. Citrucel Fiber daily for diverticulosis, p.r.n. laxative. 2. Continue omeprazole 40 mg daily for reflux. 3. We will await biopsies. ANESTHESIA: TIVA. DESCRIPTION OF PROCEDURE: The patient was informed of the risks, benefits, and possible complications of endoscopy including perforation, reaction to medication, and aspiration. Informed consent was obtained. The patient was brought to endoscopy suite, where she was sedated in gradual fashion. Once she was comfortable, a bite-block was placed inside the orifice. The endoscope was advanced through the esophagus, stomach, and second and third portions of the duodenum, and slowly removed. The esophagus was notable for small hiatal hernia, sliding type, with no evidence of incarceration or bleeding or ulcers. The stomach was found to be normal except for mild erythema in the antrum. Biopsies were obtained and submitted to Pathology. Retroflexed views were normal. The stomach had normal distensibility. . The scope was removed. The patient was turned to the room and rectal exam was performed. The endoscope was advanced to the anal canal through the colon. The cecum was identified by ileocecal valve and appendiceal orifice. There was a midline abdominal ventral hernia, which had to be reduced to a complete colonoscopy. There was a transverse colon polyp 7 mm in size, removed by hot snare polypectomy. There was diverticulosis coli throughout the colon. Retroflexed views in the rectum were normal. The scope was removed. The patient tolerated the patient procedure well. There were no complications. Job ID: [id number]
== END 2018-11-22 11:10 | disposition home or self-care (01) ==
LOC: SDC 06:33
PROVIDERS: ATTEND Internal Medicine Gastroenterology
PROC: 0DB68ZX Excision of Stomach, Via Natural or Artificial Opening Endoscopic, Diagnostic (ICD-10-PCS; principal; 2018-11-22)
PROC: 0DBL8ZX Excision of Transverse Colon, Via Natural or Artificial Opening Endoscopic, Diagnostic (ICD-10-PCS; 2018-11-22)
DX: D12.3 Benign neoplasm of transverse colon (principal); K31.89 Other diseases of stomach and duodenum; K44.9 Diaphragmatic hernia without obstruction or gangrene; K57.30 Diverticulosis of large intestine without perforation or abscess without bleeding; K43.9 Ventral hernia without obstruction or gangrene; K21.9 Gastro-esophageal reflux disease without esophagitis; M19.90 Unspecified osteoarthritis, unspecified site; I48.91 Unspecified atrial fibrillation; Z87.891 Personal history of nicotine dependence; Z79.01 Long term (current) use of anticoagulants; Z79.899 Other long term (current) drug therapy; Z88.5 Allergy status to narcotic agent; Z88.8 Allergy status to other drugs, medicaments and biological substances
CPT/HCPCS: 88305; 88312

== ENCOUNTER 2019-04-18 11:27 | Day surgery (SDC) | payer MEDICARE, OTHER ==
[2019-04-17 13:12] VITALS: BMI 36.5
[~2019-04-18 11:27] MED LIST: Dexamethasone 20 MG/5 ML VIAL ONE; Ondansetron PF 4 MG/2 ML Vial ONE; PROPOFOL 200 MG/20 ML VIAL ONE
[2019-04-18] MEDS ORDERED: Bupivacaine PF 0.5% 30 ML VIAL ONE (11:58)
[2019-04-18] MEDS ORDERED: Midazolam HCl 2 mg/2 ml Vial ONE (12:03)
[2019-04-18] MEDS ORDERED: Fentanyl 100 MCG/2 ML VIAL ONE (12:03)
[2019-04-18] MEDS ORDERED: EPINEPHrine 1 MG/ML AMP ONE ×2 (12:11→12:12)
[2019-04-18] MEDS ORDERED: CEFAZOLIN 1 GM VIAL ONE (12:29)
[2019-04-18] MEDS ORDERED: Sodium Chloride 0.9% 100 ML ONE (12:42)
--- NOTE | 2019-04-18 19:57 | OP ---
DATE OF PROCEDURE: 04/18/2019 PREOPERATIVE DIAGNOSES: 1. Chronic pain syndrome. 2. Postlaminectomy syndrome. 3. Lumbar radiculopathy. POSTOPERATIVE DIAGNOSES: 1. Chronic pain syndrome. 2. Postlaminectomy syndrome. 3. Lumbar radiculopathy. PROCEDURES PERFORMED: 1. Spinal cord stimulator generator explant. 2. Spinal cord stimulator lead explant x2. SPECIMENS REMOVED: 1. Spinal cord stimulator generator. 2. Spinal cord stimulator lead x2 intact. 3. Spinal cord stimulator anchors x2. ESTIMATED BLOOD LOSS: 5 mL. DESCRIPTION OF PROCEDURE: The patient was taken to the procedure room, placed prone on the procedure room table. A time-out was performed. We prepped the back with ChloraPrep and sterile drapes were applied. Using fluoroscopy, we located the anchor site. We anesthetized skin with 0.5% Marcaine. An incision was made with a 10 blade scalpel at both the battery site as well as the anchor site. This was blunt dissected down to fascia. The battery pocket was opened and the battery was removed. The battery was discarded. We then blunt dissected the both anchors. We removed these by cutting the stitches and in removing those, leads came out of the epidural space intact and easily. The anchors and leads were removed together. The battery was removed from the pocket as well. The scar tissue of the pocket was then cauterized. We then approximated the fascia in layers with 2-0 Vicryl suture in simple interrupted fashion in multiple layers. We then placed a 3-0 Rapide stitch as a subcuticular stitch to approximate the skin. Dermabond was used as an occlusive dressing and then a sterile 4x4s with Medipore tape was placed over this. Once dry, the patient was taken to day stay under stable condition with no apparent complications noted at this time. Job ID: [id number]
== END 2019-04-18 15:00 | disposition home or self-care (01) ==
LOC: SDC 11:27
PROVIDERS: ATTEND Specialist
PROC: 00PU3MZ Removal of Neurostimulator Lead from Spinal Canal, Percutaneous Approach (ICD-10-PCS; principal; 2019-04-18)
PROC: 0JPT0MZ Removal of Stimulator Generator from Trunk Subcutaneous Tissue and Fascia, Open Approach (ICD-10-PCS; 2019-04-18)
DX: G89.4 Chronic pain syndrome (principal); M96.1 Postlaminectomy syndrome, not elsewhere classified; M51.16 Intervertebral disc disorders with radiculopathy, lumbar region; M43.16 Spondylolisthesis, lumbar region; M17.0 Bilateral primary osteoarthritis of knee; M48.061 Spinal stenosis, lumbar region without neurogenic claudication; Z87.891 Personal history of nicotine dependence; Z79.01 Long term (current) use of anticoagulants; Z79.899 Other long term (current) drug therapy; Z88.5 Allergy status to narcotic agent; Z88.8 Allergy status to other drugs, medicaments and biological substances
CPT/HCPCS: 76000; J0171; J0690; J1100; J2250; J2405; J2704; J3010; J3490; S0020